=== PATIENT | female | born 1965 | race Caucasian/White ===

== ENCOUNTER 2017-04-10 11:35 | Inpatient (IN) | payer BC ==
[~2017-04-10] VITALS: Ht 160 cm; Wt 72.7 kg
[2017-04-10] MEDS ORDERED: SPIRONOLACTONE25 MG PO (16:11)
[2017-04-10] MEDS ORDERED: FUROSEMIDE40 MG PO (16:11)
[2017-04-10] MEDS ORDERED: LIPI20 PO (16:13)
[2017-04-10] MEDS ORDERED: CARVEDILOL25 M1 PO (16:14)
[2017-04-10] MEDS ORDERED: SIMVASTATIN40 M1 PO (16:14)
[2017-04-10 16:53] LABS: BASOPHIL % 0.2 % (0-2); PLATELET COUNT 301 x10^3mcL (130-400); RED CELL DISTRIBUTION WIDTH 13.2 % (11.5-14.5)
[2017-04-10 17:01] LABS: CALCIUM 8.7 mg/dL (8.5-10.1); CARBON DIOXIDE 26.5 mmol/L (21-32); CHLORIDE SERUM 102 mmol/L (98-107); CREATININE SERUM 0.7 mg/dL (0.6-1.0); GFR1 > 60 mL/min; GLUCOSE SERUM 124 mg/dL (74-106); POTASSIUM SERUM 3.6 mmol/L (3.5-5.1); SODIUM SERUM 136 mmol/L (136-145)
[2017-04-10 17:08] LABS: ALBUMIN 3.8 g/dL (3.4-5.0); ALKALINE PHOSPHATASE 66 U/L (46-116); ALT/SGPT 27 U/L (14-59); AST/SGOT 19 U/L (15-37); BILIRUBIN TOTAL 0.65 mg/dL (0.20-1.00); TOTAL PROTEIN, SERUM 7.7 g/dL (6.4-8.2)
[2017-04-10 17:10] VITALS: BP 186/82
[2017-04-10 17:14] VITALS: BP 183/82
[2017-04-10 17:42] LABS: ERYTHROCYTE SED RATE 9 mm/hr (0-30)
[2017-04-10 19:01] VITALS: BP 164/86
[2017-04-10 19:21] LABS: CHOLESTEROL/HDL RATIO 2.3; MAGNESIUM 2.1 mg/dL (1.8-2.4)
[2017-04-10 19:22] LABS: T3 TOTAL 0.97 ng/mL
[2017-04-10 19:30] LABS: FREE THYROXINE INDEX 2.6 ug/dL (1.4-4.5); T4(THYROXINE) 7.2 ug/dL (4.7-13.3)
[2017-04-10 20:56] VITALS: BP 118/71
[2017-04-11 06:17] VITALS: BP 126/69
[2017-04-11 07:17] LABS: BASOPHIL % 0.5 % (0-2); PLATELET COUNT 253 x10^3mcL (130-400); RED CELL DISTRIBUTION WIDTH 13.4 % (11.5-14.5)
[2017-04-11 07:21] LABS: CALCIUM 8.2 mg/dL (8.5-10.1); CARBON DIOXIDE 25.8 mmol/L (21-32); CHLORIDE SERUM 104 mmol/L (98-107); CREATININE SERUM 0.8 mg/dL (0.6-1.0); GFR1 > 60 mL/min; GLUCOSE SERUM 103 mg/dL (74-106); PHOSPHOROUS 2.7 mg/dL (2.5-4.9); POTASSIUM SERUM 3.2 mmol/L (3.5-5.1); SODIUM SERUM 140 mmol/L (136-145)
[2017-04-11 08:05] LABS: AMPHETAMINE QUAL UR NONE DETECTED (NEG <=1000)
[2017-04-11 08:51] LABS: microscopic required? YES; urine erythrocyte 1+ (NEGATIVE)
[2017-04-11 09:38] VITALS: BP 134/61
[2017-04-11] MEDS ORDERED: FLOVENT DI100 MCG/A1 INH (11:26)
[2017-04-11] MEDS ORDERED: GOOD NEIGHBOR P44 ML (11:27)
[2017-04-11] MEDS ORDERED: AUG500 PO (11:30)
[2017-04-11] MEDS ORDERED: LAC PO (11:31)
[2017-04-11] MEDS ORDERED: IMITREX50 MG PO (11:35)
[2017-04-11 11:49] VITALS: BP 134/61
[2017-04-11] MEDS ORDERED: ROBAXIN-750750 MG PO (14:24)
== END 2017-04-11 15:12 | disposition home or self-care (01) | DRG 102 ==
LOC: ED 11:35 → DU 16:05
PROVIDERS: Emergency Medicine; ADMIT Family Medicine
DX: R51 Headache (principal); I50.43 Acute on chronic combined systolic (congestive) and diastolic (congestive) heart failure; D68.69 Other thrombophilia; E83.39 Other disorders of phosphorus metabolism; R73.03 Prediabetes; Z95.0 Presence of cardiac pacemaker; Z68.28 Body mass index [BMI] 28.0-28.9, adult; I11.0 Hypertensive heart disease with heart failure; Z83.3 Family history of diabetes mellitus; Z82.49 Family history of ischemic heart disease and other diseases of the circulatory system
CPT/HCPCS: 83880; 84439; J1200; J2543; J2765; J3010; J3490; J7030; J7040; J8597; Q0092

== ENCOUNTER 2017-04-26 07:24 | Emergency (ER) | payer BC ==
[~2017-04-26] VITALS: Ht 160 cm; Wt 76.3 kg
[~2017-04-26 07:24] MED LIST: AUG500 PO; CARVEDILOL25 M1 PO; FLOVENT DI100 MCG/A1 INH; FUROSEMIDE40 MG PO; GOOD NEIGHBOR P44 ML; IMITREX50 MG PO; LAC PO; LIPI20 PO; ROBAXIN-750750 MG PO; SIMVASTATIN40 M1 PO; SPIRONOLACTONE25 MG PO
[2017-04-26 09:52] VITALS: BP 96/62
== END 2017-04-26 09:50 | disposition home or self-care (01) ==
LOC: ED 07:24
DX: M54.5 Low back pain (principal); N39.0 Urinary tract infection, site not specified; I10 Essential (primary) hypertension; I50.9 Heart failure, unspecified; E78.00 Pure hypercholesterolemia, unspecified
CPT/HCPCS: J1885